=== PATIENT | male | born 1985 | race Caucasian/White ===

== ENCOUNTER 2023-05-03 19:05 | Emergency (ER) | payer OTHER ==
[~2023-05-03] VITALS: Ht 185.4 cm; Wt 102.1 kg
[2023-05-03 19:21] VITALS: BP_SYST 145; PULSE 58; RESP 16; TEMP 97.6; O2SAT 98
[2023-05-03] MEDS ORDERED: KETOROLAC TROMETHAMINE 30 MG VIAL IVP ONE (20:15)
[2023-05-03] MEDS ORDERED: NACL 0.9% 1,000 ML IV ONE (20:15)
[2023-05-03 20:47] LABS: BASOPHILS % (AUTO) 0.5 % (0.0-2.0); EOSINOPHILS # (AUTO) 0.1 K/uL (0.0-0.4); EOSINOPHILS % (AUTO) 1.3 % (0.0-4.0); HEMATOCRIT 45.2 % (36-54); HEMOGLOBIN 15.3 g/dL (14.0-18.0); LYMPHOCYTES % (AUTO) 46.4 % (20.5-51.5); MEAN CORPUSCULAR HEMOGLOBIN 31 pg (27-31); MEAN CORPUSCULAR HGB CONC 34 % (32-36); MEAN CORPUSCULAR VOLUME 90 fL (79.0-98.0); MONOCYTES # (AUTO) 0.4 K/uL (0.0-1.0); MONOCYTES % (AUTO) 8.8 % (1.7-9.3); NEUTROPHILS # (AUTO) 1.8 K/uL (1.8-7.7); PLATELET COUNT (AUTO) 257 K/uL (130-430); RED BLOOD CELL COUNT(AUTO) 5.04 MIL/uL (4.2-6.2); WHITE BLOOD COUNT (AUTO) 4.3 K/uL (4.8-10.8)
[2023-05-03 21:03] LABS: CALCIUM 8.7 mg/dL (8.4-11.0); CREATININE 1.16 mg/dL (0.55-1.30); POTASSIUM 3.6 mmol/L (3.5-5.1)
[2023-05-03 21:07] LABS: ALBUMIN 4.1 g/dL (3.4-4.8); TOTAL BILIRUBIN 0.5 mg/dL (0.0-1.0); TOTAL PROTEIN, SERUM 7.4 g/dL (6.4-8.3)
[2023-05-03 22:27] LABS: BILIRUBIN,URINE NEGATIVE (NEGATIVE); BLOOD, URINE NEGATIVE (NEGATIVE); CLARITY/URINE CLEAR (CLEAR); COLOR,URINE YELLOW (YELLOW); GLUCOSE,URINE NEGATIVE (NEGATIVE); KETONES,URINE NEGATIVE (NEGATIVE); LEUKOCYTE ESTERASE ,URINE NEGATIVE (NEGATIVE); NITRITE, URINE NEGATIVE (NEGATIVE); PROTEIN URINE NEGATIVE (NEGATIVE); UROBILINOGEN,URINE 0.2 (0.2-1.0)
[2023-05-04] MEDS ORDERED: NAPR-1172 PO
[2023-05-04 00:08] VITALS: BP_SYST 145; PULSE 58; RESP 16; TEMP 97.6; O2SAT 98
== END 2023-05-04 00:08 | disposition home or self-care (01) ==
LOC: SED 19:05
DX: S39.011A Strain of muscle, fascia and tendon of abdomen, initial encounter (principal); Z79.899 Other long term (current) drug therapy; X58.XXXA Exposure to other specified factors, initial encounter; Y93.89 Activity, other specified; Y92.89 Other specified places as the place of occurrence of the external cause; Y99.8 Other external cause status
CPT/HCPCS: 99285; 74176; 96374; 80053; 83690; 85025; 36415; 76376; 83605; 81003; J1885

== ENCOUNTER 2024-04-03 09:31 | Emergency (ER) | payer OTHER ==
[~2024-04-03] VITALS: Ht 170.2 cm; Wt 90.7 kg
[~2024-04-03 09:31] MED LIST: NAPR-1172 PO
[2024-04-03 09:43] VITALS: BP_SYST 152; PULSE 85; RESP 18; TEMP 98.3; O2SAT 98
[2024-04-03] MEDS: ceFAZolin SODIUM 2 GM VIAL IM ONE (10:16)
[2024-04-03] MEDS: DIPHTH,PERTUSS(ACELL),TET VAC 0.5 ML VIAL (Tdap) I.M. ONE (10:16)
[2024-04-03] MEDS ORDERED: CEPH-548 PO (10:58)
[2024-04-03 11:06] VITALS: BP_SYST 140; PULSE 88; RESP 19; TEMP 98.3; O2SAT 98
== END 2024-04-03 11:05 | disposition home or self-care (01) ==
LOC: SED 09:31
DX: S61.214A Laceration without foreign body of right ring finger without damage to nail, initial encounter (principal); Z79.899 Other long term (current) drug therapy; W46.0XXA Contact with hypodermic needle, initial encounter; Y93.89 Activity, other specified; Y92.89 Other specified places as the place of occurrence of the external cause; Y99.8 Other external cause status
CPT/HCPCS: 36415; 86704; 86706; 86803; 87340; 90715; 96372; 99284